=== PATIENT | male | born 1955 | race Caucasian/White ===

== ENCOUNTER 2017-01-13 02:29 | Inpatient (IN) | payer OTHER ==
[2017-01-08 11:09] LABS: MANUAL DIFF NEEDED? NO; URINE MICRO REVIEW NEEDED? NO; URINE SOURCE CLEAN CATCH
[2017-01-08 11:13] LABS: BASO% 0.6 % (0.0-0.8); EOS# 0.18 X1000 (0.0-0.7); EOS% 2.1 % (0.0-10.0); HEMATOCRIT 46.6 % (42.0-52.0); HEMOGLOBIN 15.4 g/dL (14.0-18.0); IMM GRAN# 0.04 X1000 (0.0-0.04); IMM GRAN% 0.5 % (0.0-0.5); LYMPH# 2.14 X1000 (1.2-3.4); LYMPH% 24.4 % (20.5-51.1); MCH 31.2 PG (27-31); MCV 94.5 FL (81-99); MONO# 0.49 X1000 (0.11-0.59); MONO% 5.6 % (1.7-9.3); MPV 10.5 FL (7.4-10.4); NEUT% 66.8 % (42.2-75.2); PLT 249 X1000 (130-400); RBC 4.93 XMIL (4.7-6.1)
[2017-01-08 11:14] LABS: BILIRUBIN URINE NEGATIVE (NEGATIVE); BLOOD URINE NEGATIVE (NEGATIVE); COLOR YELLOW; GLUCOSE URINE NEGATIVE (NEGATIVE); LEUKOCYTES URINE NEGATIVE (NEGATIVE); NITRITE URINE NEGATIVE (NEGATIVE); PH URINE 5.5; PROTEIN URINE TRACE mg/dL (NEGATIVE); SP GRAVITY URINE 1.017; TURBIDITY URINE CLEAR (CLEAR); UROBILINOGEN URINE NORMAL (NORMAL)
[2017-01-08 11:15] LABS: UR EPITHELIAL CELLS <10 /HPF (<10); URINE BACTERIA NEGATIVE /HPF; URINE RBC <10 /HPF (<10); URINE WBC <10 /HPF (<10)
[2017-01-08 11:23] LABS: INR 1.04; PTT 24.6 Seconds (22.0-36.0)
[2017-01-08 11:39] LABS: AGAP 14; BUN 11 mg/dL (8-22); CHLORIDE 107 mmol/L (98-107); COSMO 285; SODIUM 143 mmol/L (136-145); TCO2 22 mmol/L (25-35)
--- NOTE | 2017-01-08 11:56 | EKG Report ---
Test Performed on : 01/08/2017 10:50:30 AM Test Reason : PAT Blood Pressure : / mmHG Vent. Rate : 057 BPM Atrial Rate : 057 BPM P-R Int : 180 ms QRS Dur : 104 ms QT Int : 420 ms P-R-T Axes : 023 -19 064 degrees QTc Int : 408 ms Sinus bradycardia. Nonspecific T wave abnormality Abnormal ECG No previous ECGs available Confirmed by Marilu RUIZ, Doyle Quiroz ([id number]) on 01/09/2017 5:22:33 PM
[2017-01-13] MEDS ORDERED: DEMEROL IV PRN (06:58)
[2017-01-13] MEDS ORDERED: LYRICA ONE (08:03)
[2017-01-13] MEDS ORDERED: COLACE ONE (08:03)
[2017-01-13] MEDS ORDERED: PEPCID ONE (08:04)
[2017-01-13] MEDS ORDERED: LR 1,000 ML ONE (08:04)
[2017-01-13] MEDS ORDERED: REGLAN ONE (08:04)
[2017-01-13] MEDS ORDERED: KEFZOL 2 GM/D5W 50 ML ONE (08:05)
[2017-01-13] MEDS: CELEBREX PO SCH (08:32)
[2017-01-13] MEDS ORDERED: GLUCOSAMINE 500 MG/CHONDROITIN 400 MG PO SCH (09:00)
[2017-01-13] MEDS ORDERED: DURAMORPH ONE (09:12)
[2017-01-13] MEDS ORDERED: MARCAINE 0.25% PF/EPI 1:200,000 ONE (09:12)
[2017-01-13] MEDS ORDERED: SODIUM CHLORIDE 0.9% ONE (09:12)
[2017-01-13] MEDS ORDERED: TORADOL ONE (09:12)
[2017-01-13] MEDS ORDERED: NEOSPORIN G.U. IRRIGANT ONE (09:13)
[2017-01-13] MEDS ORDERED: CYKLOKAPRON 1,000 MG/NS 100 ML ONE ×2 (09:13→09:14)
[2017-01-13] MEDS ORDERED: CLAVE SECONDARY SET 11953 ONE (09:14)
[2017-01-13] MEDS ORDERED: EXPAREL 1.3% ONE (09:14)
[2017-01-13 10:52] LABS: URINE MICRO REVIEW NEEDED? NO; URINE SOURCE CATH
[2017-01-13 10:55] LABS: BILIRUBIN URINE NEGATIVE (NEGATIVE); BLOOD URINE NEGATIVE (NEGATIVE); COLOR YELLOW; GLUCOSE URINE NEGATIVE (NEGATIVE); LEUKOCYTES URINE NEGATIVE (NEGATIVE); NITRITE URINE NEGATIVE (NEGATIVE); PH URINE 5.5; PROTEIN URINE 30 mg/dL (NEGATIVE); SP GRAVITY URINE 1.025; TURBIDITY URINE CLEAR (CLEAR); UR EPITHELIAL CELLS <10 /HPF (<10); URINE BACTERIA NEGATIVE /HPF; URINE RBC <10 /HPF (<10); URINE WBC <10 /HPF (<10); UROBILINOGEN URINE NORMAL (NORMAL)
[2017-01-13] MEDS ORDERED: NS 1,000 ML ONE (12:31)
--- NOTE | 2017-01-13 12:58 | OPERATIVE NOTE ---
PROCEDURE DATE: 01/13/2017 PREOPERATIVE DIAGNOSIS: Unstable left total knee replacement. POSTOPERATIVE DIAGNOSIS: Unstable left total knee replacement. PROCEDURE: Revision left total knee replacement with polyethylene exchange of the tibial component. SURGEON: Peter Flowers MD WAIST CUTTER: AIMEE Brown ANESTHESIA: General. COMPLICATION: None. PROCEDURE IN DETAIL: A 61-year-old male presents for revision of the left knee replacement. Risks, benefits, and no guarantees were discussed, and he is willing to proceed. The patient was taken to the operating room and satisfactory anesthesia obtained. The left knee was prepped and draped in the usual sterile fashion. A time-out was taken to confirm operative site, procedure, and patient. The leg was wrapped with an Esmarch and tourniquet inflated to 350 mmHg. The previous incision was utilized and extended roughly 1 cm proximally and distally. A medial parapatellar incision was made, and the implant exposed. Upon entering the joint, normal synovial fluid was encountered with no evidence of soft tissue reaction or inflammation. This was cultured for culture analysis, however, there was no clinical evidence of the tissue being inflamed or having tissue debris. Femoral and tibial implants as well as the tibial poly were fully intact without any significant wear. Laxity on both extension and 90 degrees of flexion was noted suggesting an under sized or under thick tibial component. Roughly 10 degrees of laxity medially and laterally was felt at extension and 90 degrees of flexion. Tibial polyethylene was then removed, which was measured at 10 mm thick. Then 12.5 and 15 mm thick polys were trialed with best stability as well as maintenance of the initial range of motion from 0-120 achieved with a 15 mm thick poly. The knee was then gently mobilized and a rotating platform size 5, 15 mm tibial platform inserted in the tibial tray and the knee reduced. Final range of motion was 0-120 degrees with excellent soft tissue stability on both the medial and lateral aspect. No other complications were noted and midline patellar traction ensured. The wound was then copiously irrigated with irrigant. The knee was injected with Exparel for pain management. The arthrotomy was closed with interrupted #1 Vicryl the subcutaneous with 2-0 Vicryl, and the skin with skin channing. Sterile dressings completed the closure and the patient was recovered from anesthesia and transferred to the recovery room in stable condition. No intraoperative complications were noted. Instrument count and sponge count was correct at the time of closure.
[2017-01-13] MEDS: NS 1,000 ML IV SCH ×2 (13:00→20:03)
--- NOTE | 2017-01-13 13:37 | Diag Imaging Result Document ---
PROCEDURE NAME: KNEE 1-2 VIEWS-LEFT - 01/13/2017 PLAIN RADIOGRAPH OF THE LEFT KNEE, 2 VIEWS: COMPARISON: 11/27/2016. FINDING: There has been recent left knee arthroplasty. The arthroplasty hardware is in the expected position. There is no evidence of periprosthetic fracture. Anterior skin channing and a drainage catheter are noted. IMPRESSION: Satisfactory postoperative left knee.
[2017-01-13] MEDS ORDERED: VERSED ONE (13:49)
[2017-01-13] MEDS ORDERED: DEMEROL ONE (13:49)
[2017-01-13] MEDS ORDERED: DIPRIVAN 1% ONE (13:50)
[2017-01-13] MEDS ORDERED: NEOSTIGMINE ONE (14:02)
[2017-01-13] MEDS ORDERED: SODIUM CHLORIDE 0.9% 20 ML ONE (14:02)
[2017-01-13] MEDS ORDERED: ZOFRAN ONE (14:02)
[2017-01-13] MEDS ORDERED: OFIRMEV 1000 MG/ISOTONIC SOLN 100 ML ONE (14:03)
[2017-01-13] MEDS ORDERED: QUELICIN (DOSE) ONE (14:03)
[2017-01-13] MEDS ORDERED: DECADRON ONE (14:03)
[2017-01-13] MEDS ORDERED: XYLOCAINE-MPF 2% ONE (14:03)
[2017-01-13] MEDS ORDERED: LR 2,000 ML ONE (14:03)
[2017-01-13] MEDS ORDERED: EPHEDRINE ONE (14:03)
[2017-01-13] MEDS ORDERED: NORCURON ONE (14:03)
[2017-01-13] MEDS ORDERED: ROBINUL ONE (14:04)
[2017-01-13] MEDS: VENTOLIN HFA INH SCH ×3 (16:36→19:54)
--- NOTE | 2017-01-13 16:55 | HISTORY AND PHYSICAL ---
CHIEF COMPLAINT: Left knee pain. HISTORY OF PRESENT ILLNESS: Mr. Lubin is a 61-year-old white male with a history of left knee pain. He states that he had a left total knee arthroplasty done in 2008 and recently his left knee has been causing him pain. Despite all conservative therapies he is still having problems with his knee. Radiographic images obtained of the left knee shows some possible breakdown of the poly on the left knee. He is being admitted today for a left knee poly exchange and possibly a revision of the total knee. PAST MEDICAL HISTORY: COPD, sleep apnea, hyperlipidemia, seizures, glaucoma, hypertension, diabetes mellitus, and chronic pain. PAST SURGICAL HISTORY: Left knee surgery and back surgery. FAMILY HISTORY: Noncontributory. SOCIAL HISTORY: He is . Denies tobacco. Denies alcohol. CURRENT MEDICATIONS: His current home medications are Januvia 100 mg p.o. b.i.d., metformin 1,000 mg p.o. daily, glucosamine MSN chondroitin one p.o. daily, Tricor 145 mg p.o. daily, trazodone 150 mg p.o. at bedtime, topiramate 50 mg p.o. b.i.d., budesonide and formoterol inhaler b.i.d., salicylate 500 mg p.o. four times a day, Singulair 10 mg p.o. daily, albuterol inhaled four times a day, Pravachol 40 mg p.o. at bedtime, misoprostol 200 mcg p.o. b.i.d., latanoprost one drop in both eyes at bedtime, Lamictal 150 mg p.o. b.i.d., oxymorphone hydrochloride 30 mg p.o. b.i.d., Virgen 180 mg p.o. daily, Flexeril 10 mg p.o. b.i.d., losartan potassium 25 mg p.o. daily, docusate sodium 100 mg p.o. b.i.d., and OxyContin 30 mg p.o. b.i.d. p.r.n.. ALLERGIES: Benadryl, morphine, Botox, bee stings, and fentanyl. PRIMARY CARE PHYSICIAN: Manpreet Babcock MD REVIEW OF SYSTEMS: HEENT: The patient reports having glaucoma and having dentures. He denies any other HEENT problems. Cardiac: The patient denies any history of heart problems. He denies any syncope or chest pain. Pulmonary: The patient reports COPD. He denies any wheezing or coughing currently. Gastrointestinal: The patient denies any gastrointestinal problems. Genitourinary: The patient denies any genitourinary problems. Neurological: The patient reports some right arm tingling occasionally. He denies any neurological deficits anywhere else. Musculoskeletal: The patient reports left pain. PHYSICAL EXAMINATION: HEENT: The head is normocephalic, atraumatic. Pupils are equal, round, and reactive to light. Nares are patent. Throat is without exudate. CARDIAC: S1 and S2 are auscultated. No murmur, rub, or gallop noted. LUNGS: Clear to auscultation bilaterally in all lung ford. ABDOMEN: Soft, nontender, and nondistended. Bowel sounds are present in all quadrants. GENITOURINARY: Not examined. NEUROLOGICAL: The patient has good sensation to dull touch in all extremities. Cranial nerves 2 through 12 are grossly intact. MUSCULOSKELETAL: On physical examination of the left knee the patient has pain with passive range of motion and palpation. IMPRESSION: Left knee pain and possible loose hardware. PLAN OF CARE: Left knee poly exchange and possible total knee revision. The risks, benefits, and alternatives of the surgery were discussed with the patient including the risks of anesthesia, bleeding, damage to blood vessels, nerves, tendons, and ligaments, and other imponderables were discussed and the patient agrees to proceed with the surgery at this time. Dictated by AIMEE Brown for Zohaib Flowers MD
[2017-01-13] MEDS: KEFZOL 1 GM/D5W 50 ML IV SCH (17:26)
[2017-01-13] MEDS: COZAAR PO SCH (17:27)
[2017-01-13] MEDS: CYTOTEC PO SCH ×2 (17:27→20:03)
[2017-01-13] MEDS: COLACE PO SCH ×2 (17:27→20:02)
[2017-01-13] MEDS: JANUVIA PO SCH ×3 (17:28→20:11)
[2017-01-13] MEDS: LAMICTAL PO SCH ×2 (17:28→20:02)
[2017-01-13] MEDS: FLEXERIL PO SCH ×2 (17:28→20:03)
[2017-01-13] MEDS: OXYMORPHONE HCL 30 MG PO SCH ×2 (17:28→20:05)
[2017-01-13] MEDS: TRICOR PO SCH (17:29)
[2017-01-13] MEDS: SINGULAIR PO SCH (17:29)
[2017-01-13] MEDS: TOPAMAX PO SCH ×2 (17:29→20:03)
[2017-01-13] MEDS: GLUCOPHAGE XR PO SCH (17:31)
[2017-01-13] MEDS: SYMBICORT 160/4.5 MICROGM INHALER INH SCH (19:55)
[2017-01-13] MEDS: PERIDEX MT SCH (20:03)
[2017-01-13] MEDS ORDERED: DESYREL PO SCH (21:00)
[2017-01-13] MEDS ORDERED: PRAVACHOL PO SCH (21:00)
[2017-01-13] MEDS ORDERED: XALATAN 0.005% OPH SOLN BOTH EYES SCH (21:00)
[2017-01-13] MEDS: PERCOCET-10 PO PRN (23:37)
[2017-01-14] MEDS: KEFZOL 1 GM/D5W 50 ML IV SCH (01:39)
[2017-01-14] MEDS: NS 1,000 ML IV SCH ×2 (01:39→13:11)
[2017-01-14] MEDS: VENTOLIN HFA INH SCH ×3 (02:50→16:51)
[2017-01-14] MEDS: PERCOCET-10 PO PRN ×3 (03:48→17:20)
[2017-01-14] MEDS ORDERED: XARELTO PO SCH (06:00)
[2017-01-14 06:23] LABS: HEMATOCRIT 40.8 % (42.0-52.0); HEMOGLOBIN 13.2 g/dL (14.0-18.0)
[2017-01-14 06:43] LABS: AGAP 15; BUN 16 mg/dL (8-22); CALCIUM 9.1 mg/dL (8.8-10.2); CHLORIDE 103 mmol/L (98-107); COSMO 281; POTASSIUM 3.8 mmol/L (3.5-5.1); SODIUM 140 mmol/L (136-145); TCO2 22 mmol/L (25-35)
[2017-01-14] MEDS: SYMBICORT 160/4.5 MICROGM INHALER INH SCH (07:43)
[2017-01-14] MEDS: CYTOTEC PO SCH (08:29)
[2017-01-14] MEDS: TRICOR PO SCH (08:30)
[2017-01-14] MEDS: TOPAMAX PO SCH (08:30)
[2017-01-14] MEDS: LAMICTAL PO SCH (08:31)
[2017-01-14] MEDS: CELEBREX PO SCH (08:32)
[2017-01-14] MEDS: COZAAR PO SCH (08:32)
[2017-01-14] MEDS: GLUCOPHAGE XR PO SCH (08:32)
[2017-01-14] MEDS: FLEXERIL PO SCH (08:32)
[2017-01-14] MEDS: SINGULAIR PO SCH (08:33)
[2017-01-14] MEDS: PERIDEX MT SCH (08:33)
[2017-01-14] MEDS: COLACE PO SCH (08:38)
[2017-01-14] MEDS ORDERED: ALLEGRA PO SCH (09:00)
[2017-01-14] MEDS ORDERED: JANUVIA PO SCH (09:00)
[2017-01-14] MEDS ORDERED: GLUCOSAMINE 500 MG/CHONDROITIN 400 MG PO SCH (09:00)
[2017-01-14] MEDS ORDERED: PATIENT'S OWN MED PO SCH ×2 (13:25→13:26)
[2017-01-14 16:53] VITALS: BP 128/68
--- NOTE | 2017-01-14 17:23 | DISCHARGE SUMMARY ---
ADMISSION DATE: 01/13/2017 DISCHARGE DATE: 01/14/2017 DISCHARGE DIAGNOSIS: 1. Degenerative joint disease of the left knee. 2. Chronic obstructive pulmonary disease. 3. Sleep apnea. 4. Hyperlipidemia. 5. Seizures. 6. Glaucoma. 7. Hypertension. 8. Diabetes mellitus. 9. Chronic pain. ADDITIONAL DIAGNOSES: 1. Degenerative joint disease of the left knee. 2. Chronic obstructive pulmonary disease. 3. Sleep apnea. 4. Hyperlipidemia. 5. Seizures. 6. Glaucoma. 7. Hypertension. 8. Diabetes mellitus. 9. Chronic pain. ADMITTING HISTORY AND HOSPITAL COURSE: Mr. Lubin is a 61-year-old white male with a history of left knee pain. He was admitted to the hospital yesterday to have a left total knee arthroplasty. After his surgery he remained afebrile. His vital signs remained stable. His hematocrit is currently 40.8. He is ambulating about 150 feet with a front wheel walker. His incision looks good. The dressing is dry. There is no drainage, no signs of infection or DVT. We plan to discharge him home today where he will begin outpatient physical therapy regimen. DISCHARGE MEDICATIONS: Januvia 100 mg p.o. b.i.d. Metformin 1000 mg p.o. daily. Glucosamine MSM chondroitin A one p.o. daily. TriCor 145 mg p.o. daily. Trazodone hydrochloride 150 mg p.o. at bedtime. Topiramate 50 mg p.o. b.i.d. Symbicort 10.2 g inhaled b.i.d. Salsalate 500 mg p.o. 4 times daily. Singulair 10 mg p.o. daily. Albuterol 8.5 g inhaled 4 times daily. Pravachol 40 mg p.o. at bedtime. Misoprostol 200 mcg p.o. b.i.d. Latanoprost ophthalmic solution 1 drop both eyes at bedtime. Lamictal 150 mg p.o. b.i.d. Oxymorphone hydrochloride 30 mg p.o. b.i.d. Virgen 180 mg p.o. daily. Cyclobenzaprine 10 mg p.o. b.i.d. Losartan potassium 25 mg p.o. daily. Docusate sodium 100 mg p.o. b.i.d. Oxycodone hydrochloride 30 mg p.o. b.i.d. p.r.n. Xarelto 10 mg p.o. daily for 2 weeks. Percocet 10 mg 1-2 p.o. q.4-6 hours p.r.n. for pain. DISCHARGE INSTRUCTIONS: Mr. Lubin is to discharge home today. We have provided him with information about his discharge medications and [place] and the Xarelto. He will be going to outpatient physical therapy regimen. We have discussed with him that he needs to begin tomorrow. I talked with him and discussed with him that if he has any worsening signs or symptoms or any discharge or any complications he should call the office immediately. He will need to follow up with Dr. Flowers in about 10 days to have his channing removed. Dictated by AIMEE Brown for Zohaib Flowers MD
== END 2017-01-14 17:41 | disposition home or self-care (01) | DRG 468 ==
LOC: SURHOLD 02:29 → 4N 09:43
PROVIDERS: ADMIT Orthopaedic Surgery Adult Reconstructive Orthopaedic Surgery; ATTEND Orthopaedic Surgery Adult Reconstructive Orthopaedic Surgery
PROC: 0SRW0JZ Replacement of Left Knee Joint, Tibial Surface with Synthetic Substitute, Open Approach (ICD-10-PCS; principal; 2017-01-13 09:44)
PROC: 0SPW0JZ Removal of Synthetic Substitute from Left Knee Joint, Tibial Surface, Open Approach (ICD-10-PCS; 2017-01-13 09:44)
DX: T84.023A Instability of internal left knee prosthesis, initial encounter (principal); E11.40 Type 2 diabetes mellitus with diabetic neuropathy, unspecified; R56.9 Unspecified convulsions; J44.9 Chronic obstructive pulmonary disease, unspecified; E78.5 Hyperlipidemia, unspecified; H40.9 Unspecified glaucoma; G89.29 Other chronic pain; F17.210 Nicotine dependence, cigarettes, uncomplicated; G47.33 Obstructive sleep apnea (adult) (pediatric); M17.12 Unilateral primary osteoarthritis, left knee; Z91.19 Patient's noncompliance with other medical treatment and regimen; Z79.84 Long term (current) use of oral hypoglycemic drugs; Z79.51 Long term (current) use of inhaled steroids; Z79.899 Other long term (current) drug therapy
CPT/HCPCS: 73560; 80048; 81001; 82948; 85014; 85018; 85025; 85610; 85730; 86850; 86900; 86901; 87070; 87075; 87205; 93005; 93010; 94761; 94799; C9290; J0131; J0330; J0690; J1100; J1885; J2175; J2250; J2274; J2405; J7030; J7120; 94640-76; 97110-GP; 97116-GP; J2710